=== PATIENT | male | born 1950 | race Two or more races ===

== ENCOUNTER 2022-02-21 08:50 | Outpatient (CLI) | payer SELFPAY ==
--- NOTE | ~2022-02-21 | XR_ITS ---
XR chest 2V DATE: 02/21/2022 09:31 INDICATION: Tuberculosis screening TECHNIQUE: PA and lateral views COMPARISON: None FINDINGS: Normal heart size. Aortic arch calcification. No hilar or mediastinal enlargement. No pulmonary infiltrate or consolidation, pleural effusion or pulmonary vascular congestion or pneumo thorax. Osteopenia. Mild dextroscoliosis of the thoracic spine. IMPRESSION: No active cardiopulmonary disease Reviewed, dictated and finalized at location A.
== END 2022-02-21 08:51 | disposition home or self-care (01) ==
PROVIDERS: Visit Provider Pediatrics
DX: Z11.1 Encounter for screening for respiratory tuberculosis (principal)
CPT/HCPCS: 71046

== ENCOUNTER 2023-04-27 09:25 | Outpatient (CLI) | payer OTHER, SELFPAY ==
--- NOTE | ~2023-04-27 | US_ITS ---
EXAMINATION: US art doppler w press LE BI DATE: 04/27/2023 11:03 INDICATION: Claudication. Type 2 diabetes mellitus with diabetic mononeuropathy. TECHNIQUE: Segmental pressures and plethysmographic and Doppler waveforms of the brachial and lower e xtremity arteries were obtained. COMPARISON: None. FINDINGS: Right and left brachial artery pressures of 123 mm Hg and 127 mm Hg, respectively, are concordant (no rmal difference <= 30 mmHg). The right and left high-thigh pressure indices are 0.44 and 0.87, respec tively (normal > 1.2). The right ankle-brachial index (SAUNDRA) is 0.61 (normal >= 0.9-1). The right great toe-brachial index (T BI) is 0.24 (normal >= 0.6-0.8). The right lower extremity segmental pressure gradients are increased at multiple throughout the right lower limb (normal gradients <= 20-30 mmHg between adjacent levels on the same leg or the same levels on the two legs). Arterial waveforms are biphasic with parvus and tardus waveforms with delayed upstrokes and broadened systolic peaks at the right dorsalis pedis umberto ry. There are biphasic waveforms with brisk systolic upstrokes at the remaining arteries in the right lower limb. The left SAUNDRA is 0.43. The left TBI is 0.12. The left lower extremity segmental pressure gradients are similarly increased at multiple levels throughout the left lower limb. Arterial waveforms are biphas ic with parvus and tardus waveforms at both the left dorsalis pedis and posterior tibial arteries and with brisk systolic upstrokes at the left common femoral, superficial femoral and popliteal arteries . IMPRESSION: 1. Likely multifocal arterial occlusive disease to both lower limbs with significantly decreased bila teral high thigh pressure indices, right greater than left, and with moderately decreased right and s everely decreased left ABIs and TBIs. Reviewed, dictated and finalized at location A. IMPRESSION: 1. Likely multifocal arterial occlusive disease to both lower limbs with signif icantly decreased bilateral high thigh pressure indices, right greater than lef t, and with moderately decreased right and severely decreased left ABIs and TBI s.
== END 2023-04-27 09:26 | disposition home or self-care (01) ==
PROVIDERS: PCP Emergency Medicine; Visit Provider Emergency Medicine
DX: I73.9 Peripheral vascular disease, unspecified (principal); E11.41 Type 2 diabetes mellitus with diabetic mononeuropathy
CPT/HCPCS: 93923

== ENCOUNTER 2023-05-11 07:03 | Outpatient (CLI) | payer OTHER, SELFPAY ==
--- NOTE | ~2023-05-11 | CT_ITS ---
EXAMINATION: CT lung screening DATE: 05/11/2023 07:44 INDICATION: Personal history of nicotine dependence, current smoker with 56 pack year history TECHNIQUE: Computed tomography (CT) of the chest was performed without intravenous contrast. The dose -length product (DLP) was 51.60 mGy-cm. Automated exposure control and iterative reconstruction techn ique were employed. COMPARISON: None FINDINGS: There is mild emphysema. There is an 11 mm spiculated nodule of the left upper lobe. Tiny a djacent satellite lesions are noted which measure up to 3 mm. No pleural effusion or pneumothorax. Th ere is a 3 mm nodule of the right upper lobe. There is a 7 mm nodule versus focal atelectasis of the lingula (image 82). No pathologically enlarged thoracic lymph nodes are identified. The heart size is normal. There is a small amount of mucus in the distal trachea. Calcified coronary artery atheroscle rosis is noted. There is mild thoracic spondylosis. IMPRESSION: 1. Lung-RADS category 4X: Very suspicious. Findings for which additional diagnostic testing and/or ti ssue sampling is recommended. Reviewed, dictated and finalized at location B. IMPRESSION: 1. Lung-RADS category 4X: Very suspicious. Findings for which additional diagno stic testing and/or tissue sampling is recommended.
== END 2023-05-11 07:04 | disposition home or self-care (01) ==
PROVIDERS: PCP Emergency Medicine; Visit Provider Emergency Medicine
DX: Z12.2 Encounter for screening for malignant neoplasm of respiratory organs (principal); Z87.891 Personal history of nicotine dependence; R91.8 Other nonspecific abnormal finding of lung field
CPT/HCPCS: 71271